=== PATIENT | female | born 1935 | race African-American/Black ===

== ENCOUNTER 2017-03-28 15:05 | Inpatient (IN) | payer MEDICARE, BC ==
[~2017-03-28] VITALS: Ht 162.6 cm; Wt 65.3 kg
[~2017-03-28 15:05] MED LIST: AMLO10TA80; ATOR20TA65 PO; FURO20TA4; METO-396; PANT40TA4; PROC10TA PO; SODI650T PO; WARF4TAB39
[2017-03-28] MEDS ORDERED: KETOROLAC 30MG/ML VIAL IV STA (15:39)
[2017-03-28] MEDS ORDERED: ONDANSETRON HCL 4MG TABLET PO ONE (15:45)
[2017-03-28 15:56] LABS: BASOPHILS % 0.8 % (0.0-2.0); EOSINOPHILS % 0.1 % (0.0-5.0); HEMATOCRIT. 33.2 % (36.0-48.0); LYMPHOCYTES % 24.8 % (20.0-50.0); MEAN CORPUSCULAR HEMOGLOBIN 31.2 pg (28.0-32.0); MEAN CORPUSCULAR VOLUME 94.5 fL (81.0-99.0); MONOCYTES % 7.1 % (2.0-8.0); NEUTROPHILS % 67.2 % (40.0-76.0); PLATELET 358 x1000/uL (130-400); RED BLOOD CELL COUNT 3.52 mill/uL (4.2-5.4); RED CELL DISTRIBUTION WIDTH 18.5 % (11.6-14.6)
[2017-03-28] MEDS ORDERED: ONDANSETRON HCL 4MG/2ML VIAL ONE (16:05)
[2017-03-28 16:07] LABS: INR 3.2; PROTHROMBIN TIME 33.3 sec (9.4-11.6)
[2017-03-28 16:10] LABS: CARBON DIOXIDE 21 mEq/L (21-32); CHLORIDE 105 mEq/L (98-107)
[2017-03-28] MEDS ORDERED: ONDANSETRON HCL 4MG/2ML VIAL IV ONE (16:15)
[2017-03-28] MEDS ORDERED: MORPHINE SULFATE 4 MG/ML CPJ (NOT FOR IM USE) IV ONE (17:00)
[2017-03-28] MEDS ORDERED: MAGNESIUM CITRATE 300ML SOLUTION PO ONE (17:00)
[2017-03-28] MEDS ORDERED: MORPHINE SULFATE 2 MG/ML CPJ (NOT FOR IM USE) IV ONE (17:35)
[2017-03-28 18:34] LABS: CLARITY URINE TURBID (CLEAR); COLOR URINE DARK YELLOW (YELLOW); GLUCOSE URINE NEGATIVE (NEGATIVE); KETONES URINE TRACE (NEGATIVE); LEUKOCYTE ESTERASE URINE 3+ (NEGATIVE); NITRITE URINE NEGATIVE (NEGATIVE); OCCULT BLOOD URINE 2+ (NEGATIVE); PH URINE 5.5 (4.5-8.0); PROTEIN URINE 3+ (NEGATIVE); SPECIFIC GRAVITY URINE 1.021 (1.005-1.030); UROBILINOGEN URINE 0.2 E.U./dL (0.2-1.0)
[2017-03-28] MEDS ORDERED: CEFTRIAXONE 1 G PREMIX 50 ML IV ONE (18:45)
[2017-03-28] MEDS ORDERED: CLONIDINE 0.1MG TABLET PO PRN (22:15)
[2017-03-28] MEDS ORDERED: MAGNESIUM/ALUMINUM HYDROXIDE/SIMETHICONE 30ML UDC PO PRN (22:15)
[2017-03-28] MEDS ORDERED: NA PHOS,M-B/NA PHOS,DI-BA ENEMA 118ML PR PRN (22:15)
[2017-03-28] MEDS ORDERED: DOCUSATE SODIUM 100MG CAPSULE PO PRN (22:15)
[2017-03-28] MEDS ORDERED: IPRATROPIUM/ALBUTEROL 0.5-3(2.5)MG/3ML NEB INH PRN (22:15)
[2017-03-28 23:00] VITALS: BP 133/78
[2017-03-28] MEDS: ONDANSETRON HCL 4MG/2ML VIAL IV PRN (23:30)
[2017-03-28] MEDS ORDERED: LEVOFLOXACIN 500MG PREMIX 100 ML IV NR (23:30)
[2017-03-28] MEDS: ACETAMINOPHEN 325MG TABLET PO PRN (23:30)
[2017-03-28] MEDS: SODIUM CHLORIDE 0.45% 1,000 ML IV SCH (23:30)
[2017-03-29] VITALS: BP_SYST 57
[2017-03-29 04:00] VITALS: BP 129/70
[2017-03-29] MEDS: ACETAMINOPHEN 325MG TABLET PO PRN (06:49)
[2017-03-29 07:08] LABS: EOSINOPHILS % 0.1 % (0.0-5.0); HEMATOCRIT. 30.7 % (36.0-48.0); HEMOGLOBIN. 10.2 g/dL (12.0-16.0); LYMPHOCYTES % 16.5 % (20.0-50.0); MEAN CORPUSCULAR HEMOGLOBIN 31.7 pg (28.0-32.0); MEAN CORPUSCULAR VOLUME 95.1 fL (81.0-99.0); MEAN PLATELET VOLUME 9.2 fl (7.4-10.4); MONOCYTES % 7.6 % (2.0-8.0); NEUTROPHILS % 75.8 % (40.0-76.0); PLATELET 305 x1000/uL (130-400); RED BLOOD CELL COUNT 3.22 mill/uL (4.2-5.4); RED CELL DISTRIBUTION WIDTH 18.5 % (11.6-14.6)
[2017-03-29 08:04] LABS: CARBON DIOXIDE 20 mEq/L (21-32); CHLORIDE 106 mEq/L (98-107)
[2017-03-29] MEDS: ASPIRIN 81MG EC TABLET PO SCH (08:31)
[2017-03-29] MEDS: ONDANSETRON HCL 4MG/2ML VIAL IV PRN (09:14)
[2017-03-29 09:16] VITALS: BP 128/76
[2017-03-29] MEDS ORDERED: HYDROCODONE/ACETAMINOPHEN 5/325MG TABLET PO PRN (09:30)
[2017-03-29] MEDS: MORPHINE SULFATE 2 MG/ML CPJ (NOT FOR IM USE) IV PRN ×2 (10:14→17:17)
[2017-03-29] MEDS ORDERED: LACTULOSE 20G/30ML UDC PO NR (12:30)
[2017-03-29 12:58] VITALS: BP 121/65
[2017-03-29] MEDS: SODIUM CHLORIDE 0.45% 1,000 ML IV SCH (14:27)
[2017-03-29 17:17] VITALS: BP 129/79
[2017-03-29 20:00] VITALS: BP 140/66
[2017-03-29] MEDS ORDERED: LEVOFLOXACIN 250MG PREMIX 50 ML IV SCH (20:00)
[2017-03-30] VITALS (7 sets, daily range): BP systolic 119–140; BP diastolic 61–70
[2017-03-30] MEDS: MORPHINE SULFATE 2 MG/ML CPJ (NOT FOR IM USE) IV PRN ×2 (02:35→09:48)
[2017-03-30 06:41] LABS: BASOPHILS % 0.4 % (0.0-2.0); EOSINOPHILS % 0.2 % (0.0-5.0); HEMOGLOBIN. 9.2 g/dL (12.0-16.0); LYMPHOCYTES % 25.5 % (20.0-50.0); MEAN CORPUSCULAR HEMOGLOBIN 31.2 pg (28.0-32.0); MEAN CORPUSCULAR VOLUME 94.9 fL (81.0-99.0); MONOCYTES % 8.8 % (2.0-8.0); NEUTROPHILS % 65.1 % (40.0-76.0); PLATELET 294 x1000/uL (130-400); RED BLOOD CELL COUNT 2.95 mill/uL (4.2-5.4); RED CELL DISTRIBUTION WIDTH 17.9 % (11.6-14.6)
[2017-03-30 06:42] LABS: INR 2.4; PROTHROMBIN TIME 25.4 sec (9.4-11.6)
[2017-03-30 07:03] LABS: CARBON DIOXIDE 20 mEq/L (21-32); CHLORIDE 108 mEq/L (98-107)
[2017-03-30] MEDS: ASPIRIN 81MG EC TABLET PO SCH (08:08)
[2017-03-30] MEDS: ACETAMINOPHEN 325MG TABLET PO PRN (08:08)
[2017-03-30] MEDS: SODIUM CHLORIDE 0.45% 1,000 ML IV SCH (08:09)
[2017-03-30] MEDS: ONDANSETRON HCL 4MG/2ML VIAL IV PRN (15:19)
== END 2017-03-30 21:20 | DRG 391 ==
LOC: ER 15:21 → 6EST 18:54 → ENRESERV 19:31 → 6EST 03-30 03:28
PROVIDERS: ADMIT Hospitalist; ATTEND Hospitalist
DX: K59.00 Constipation, unspecified (principal); E43 Unspecified severe protein-calorie malnutrition; N17.9 Acute kidney failure, unspecified; D68.59 Other primary thrombophilia; R65.10 Systemic inflammatory response syndrome (SIRS) of non-infectious origin without acute organ dysfunction; N39.0 Urinary tract infection, site not specified; M19.90 Unspecified osteoarthritis, unspecified site; I10 Essential (primary) hypertension; Z86.718 Personal history of other venous thrombosis and embolism; Z90.710 Acquired absence of both cervix and uterus; Z87.81 Personal history of (healed) traumatic fracture; Z68.24 Body mass index [BMI] 24.0-24.9, adult; Z79.01 Long term (current) use of anticoagulants; Z79.899 Other long term (current) drug therapy
CPT/HCPCS: 36415; 74176; 80053; 81001; 83605; 83690; 85025; 85610; 87077; 87086; 87186; 93005; 93970; 96365; 96375; 97163; 99285; J0696; J1885; J1956; J2270; J2405; Q0162

== ENCOUNTER 2018-10-07 13:03 | Inpatient (IN) | payer MEDICARE, BC ==
[~2018-10-07] VITALS: Ht 157.5 cm; Wt 56.3 kg
[~2018-10-07 13:03] MED LIST changes: -PROC10TA PO; +PROC10TA13 PO; -WARF4TAB39; +WARF4TAB71
[2018-10-07] MEDS ORDERED: NA PHOS,M-B/NA PHOS,DI-BA ENEMA 118ML PR ONE (14:15)
[2018-10-07 14:52] LABS: BASOPHILS % 0.1 % (0.0-2.0); HEMATOCRIT. 27.5 % (36.0-48.0); HEMOGLOBIN. 9.3 g/dL (12.0-16.0); LYMPHOCYTES % 11.2 % (20.0-50.0); MEAN CORPUSCULAR HEMOGLOBIN 31.6 pg (28.0-32.0); MEAN PLATELET VOLUME 8.3 fl (7.4-10.4); MONOCYTES % 5.7 % (2.0-8.0); PLATELET 332 x1000/uL (130-400); RED BLOOD CELL COUNT 2.95 mill/uL (4.2-5.4); RED CELL DISTRIBUTION WIDTH 14.8 % (11.6-14.6)
[2018-10-07 15:00] LABS: CHLORIDE 118 mEq/L (98-107)
[2018-10-07] MEDS ORDERED: POLYETHYLENE GLYCOL 3350 (17GM) 1 DOSE PACK PO ONE (15:00)
[2018-10-07 15:03] LABS: INR 1.1; PROTHROMBIN TIME 10.8 sec (9.1-11.1)
[2018-10-07] MEDS ORDERED: SODIUM CHLORIDE 0.9% 1,000 ML IV ONE (15:15)
[2018-10-07] MEDS ORDERED: MORPHINE SULFATE 4 MG/ML CPJ (NOT FOR IM USE) IV ONE (15:15)
[2018-10-07] MEDS ORDERED: ONDANSETRON HCL 4MG/2ML INJ IV ONE (15:15)
[2018-10-07] MEDS ORDERED: DEXTROSE 50% WATER 50ML SYRINGE IV ONE (15:30)
[2018-10-07] MEDS ORDERED: CALCIUM GLUCONATE 100MG/ML 10ML VIAL IV ONE (15:30)
[2018-10-07] MEDS ORDERED: INSULIN REGULAR (HUMULIN R) UD 100 UNITS/ML SYR IV ONE (15:30)
[2018-10-07] MEDS ORDERED: LACTULOSE 20G/30ML UDC PO ONE (15:30)
[2018-10-07 15:51] LABS: BG BASE EXCESS -14.7 mmol/L (-2.0-2.0); BG CARBOXYHEMOGLOBIN 0.3 % (0.5-1.5); BG DEOXYHEMOGLOBIN 2.5 % (0.0-5.0); BG FRACTION INSPIRED OXYGEN 21; BG HCO3 ACT 9.6 mmol/L (22.0-26.0); BG METHEMOGLOBIN 0.2 % (0.0-1.5); BG OXYGEN SATURATION 97.5 % (92.0-98.5); BG PCO2 19.4 mmHg (35.0-45.0); BG PH 7.311 (7.350-7.450); BG PO2 111.3 mmHg (75.0-100.0); BG SAMPLE SITE RIGHT BRACHIAL; BG TOTAL HEMOGLOBIN 10.4 g/dL (12.0-18.0); BG VENT MODE ROOM AIR
[2018-10-07] MEDS ORDERED: ONDANSETRON HCL 4MG/2ML INJ IV NR (16:30)
[2018-10-07] MEDS ORDERED: MORPHINE SULFATE 4 MG/ML CPJ (NOT FOR IM USE) IV NR (16:30)
[2018-10-07] MEDS ORDERED: GUAIFENESIN 200MG/10ML SUGAR FREE UDC PO PRN (18:15)
[2018-10-07] MEDS ORDERED: ONDANSETRON HCL 4MG/2ML INJ IV PRN (18:15)
[2018-10-07] MEDS ORDERED: IPRATROPIUM/ALBUTEROL 0.5-3(2.5)MG/3ML NEB INH PRN (18:15)
[2018-10-07] MEDS ORDERED: DIPHENHYDRAMINE 50MG/ML VIAL IV PRN (18:15)
[2018-10-07 22:10] VITALS: BP 174/65
[2018-10-07 23:41] LABS: CREATINE KINASE MB FRACTION 1.1 ng/mL (0.5-3.6)
[2018-10-08 04:00] VITALS: BP 152/77
[2018-10-08 05:57] LABS: BASOPHILS % 0.1 % (0.0-2.0); HEMATOCRIT. 23.3 % (36.0-48.0); HEMOGLOBIN. 7.6 g/dL (12.0-16.0); LYMPHOCYTES % 9.8 % (20.0-50.0); MEAN CORPUSCULAR HEMOGLOBIN 31.1 pg (28.0-32.0); MEAN CORPUSCULAR VOLUME 95.3 fL (81.0-99.0); MEAN PLATELET VOLUME 8.4 fl (7.4-10.4); MONOCYTES % 8.7 % (2.0-8.0); NEUTROPHILS % 81.4 % (40.0-76.0); PLATELET 283 x1000/uL (130-400); RED BLOOD CELL COUNT 2.45 mill/uL (4.2-5.4)
[2018-10-08 06:26] LABS: CHLORIDE 123 mEq/L (98-107)
[2018-10-08 06:42] LABS: LDL CHOLESTEROL 46 mg/dL (5-100)
[2018-10-08 06:44] LABS: CREATINE KINASE 48 IU/L (26-192)
[2018-10-08 06:45] LABS: HDL CHOLESTEROL 32 mg/dL (40-59)
[2018-10-08 08:00] VITALS: BP 132/68
[2018-10-08] MEDS: DOCUSATE SODIUM 100MG CAPSULE PO PRN (09:59)
[2018-10-08] MEDS ORDERED: SODIUM BICARBONATE 8.4% 1 MEQ/ML 50ML SYR IV NR (10:30)
[2018-10-08] MEDS ORDERED: INSULIN REGULAR (HUMULIN R) UD 100 UNITS/ML SYR IV NR (11:30)
[2018-10-08] MEDS ORDERED: SODIUM BICARBONATE 150 MEQ in DEXTROSE 5% WATER 950 ML IV SCH (11:30)
[2018-10-08] MEDS ORDERED: SODIUM POLYSTYRENE SULFONATE 15 G/60 ML BOT PO NR (11:30)
[2018-10-08] MEDS ORDERED: DEXTROSE 50% WATER 50ML SYRINGE IV NR ×2 (11:30→13:30)
[2018-10-08] MEDS: CITRIC ACID/SODIUM CITRATE SOLN 30ML UDC PO SCH ×4 (11:42→22:40)
[2018-10-08 12:00] VITALS: BP 132/62
[2018-10-08] MEDS ORDERED: LACTULOSE 20G/30ML UDC PO PRN (12:15)
[2018-10-08 16:00] VITALS: BP 156/66
[2018-10-08 16:45] LABS: TOTAL IRON BINDING CAPACITY 218 ug/dL (250-450)
[2018-10-08] MEDS: DOCUSATE SODIUM 100MG CAPSULE PO SCH (18:20)
[2018-10-08 20:00] VITALS: BP 125/67
[2018-10-08] MEDS: ATORVASTATIN CALCIUM 20MG TABLET PO SCH (22:40)
[2018-10-08] MEDS: AMLODIPINE 5MG TABLET PO SCH (22:42)
[2018-10-08] MEDS: METOPROLOL TARTRATE 25MG TABLET PO SCH (22:43)
[2018-10-09] VITALS: BP 123/62
[2018-10-09 04:00] VITALS: BP 141/68
[2018-10-09 04:58] LABS: CLARITY URINE CLEAR (CLEAR); COLOR URINE YELLOW (YELLOW); KETONES URINE NEGATIVE (NEGATIVE); LEUKOCYTE ESTERASE URINE NEGATIVE (NEGATIVE); NITRITE URINE NEGATIVE (NEGATIVE); OCCULT BLOOD URINE NEGATIVE (NEGATIVE); PROTEIN URINE 3+ (NEGATIVE); SPECIFIC GRAVITY URINE 1.015 (1.005-1.030)
[2018-10-09 07:07] LABS: BASOPHILS % 0.2 % (0.0-2.0); HEMATOCRIT. 21.5 % (36.0-48.0); HEMOGLOBIN. 7.4 g/dL (12.0-16.0); LYMPHOCYTES % 27.3 % (20.0-50.0); MEAN CORPUSCULAR HEMOGLOBIN 31.6 pg (28.0-32.0); MEAN CORPUSCULAR VOLUME 92.4 fL (81.0-99.0); MEAN PLATELET VOLUME 8.6 fl (7.4-10.4); MONOCYTES % 9.2 % (2.0-8.0); NEUTROPHILS % 63.3 % (40.0-76.0); PLATELET 255 x1000/uL (130-400); RED BLOOD CELL COUNT 2.33 mill/uL (4.2-5.4); RED CELL DISTRIBUTION WIDTH 14.8 % (11.6-14.6)
[2018-10-09 08:00] VITALS: BP 128/60
[2018-10-09 08:09] LABS: PHOSPHORUS 3.6 mg/dL (2.5-4.9)
[2018-10-09] MEDS: CITRIC ACID/SODIUM CITRATE SOLN 30ML UDC PO SCH (09:10)
[2018-10-09] MEDS: METOPROLOL TARTRATE 25MG TABLET PO SCH ×2 (09:10→20:56)
[2018-10-09] MEDS: AMLODIPINE 5MG TABLET PO SCH ×2 (09:11→20:55)
[2018-10-09] MEDS: DOCUSATE SODIUM 100MG CAPSULE PO SCH ×2 (09:11→18:02)
[2018-10-09] MEDS: SODIUM CHLORIDE 0.45% 1,000 ML IV SCH ×2 (09:40→21:50)
[2018-10-09 09:53] LABS: BG BASE EXCESS 3.2 mmol/L (-2.0-2.0); BG DEOXYHEMOGLOBIN 3.4 % (0.0-5.0); BG FRACTION INSPIRED OXYGEN 21; BG HCO3 ACT 25.8 mmol/L (22.0-26.0); BG METHEMOGLOBIN 0.2 % (0.0-1.5); BG OXYGEN SATURATION 96.6 % (92.0-98.5); BG OXYHEMOGLOBIN 96.4 % (94.0-97.0); BG PCO2 31.4 mmHg (35.0-45.0); BG PH 7.533 (7.350-7.450); BG PO2 92.6 mmHg (75.0-100.0); BG SAMPLE SITE LEFT BRACHIAL; BG TOTAL HEMOGLOBIN 7.9 g/dL (12.0-18.0); BG VENT MODE ROOM AIR
[2018-10-09 12:00] VITALS: BP 121/70
[2018-10-09 16:00] VITALS: BP 145/70
[2018-10-09 20:00] VITALS: BP 133/53
[2018-10-09] MEDS: ATORVASTATIN CALCIUM 20MG TABLET PO SCH (20:55)
[2018-10-10] VITALS (10 sets, daily range): BP systolic 122–150; BP diastolic 61–91
[2018-10-10 07:47] LABS: MEAN CORPUSCULAR HEMOGLOBIN 31.7 pg (28.0-32.0); MEAN PLATELET VOLUME 8.3 fl (7.4-10.4); PLATELET 255 x1000/uL (130-400); RED BLOOD CELL COUNT 2.16 mill/uL (4.2-5.4)
[2018-10-10 07:52] LABS: HEMOGLOBIN. 6.9 g/dL (12.0-16.0)
[2018-10-10 07:53] LABS: HEMATOCRIT. 19.9 % (36.0-48.0)
[2018-10-10] MEDS: AMLODIPINE 5MG TABLET PO SCH ×2 (09:41→23:02)
[2018-10-10] MEDS: DOCUSATE SODIUM 100MG CAPSULE PO SCH (09:42)
[2018-10-10] MEDS: METOPROLOL TARTRATE 25MG TABLET PO SCH ×2 (09:42→23:13)
[2018-10-10 10:18] LABS: PHOSPHORUS 3.4 mg/dL (2.5-4.9)
[2018-10-10] MEDS: SODIUM CHLORIDE 0.45% 1,000 ML IV SCH (12:29)
[2018-10-10] MEDS ORDERED: BISACODYL 5MG TABLET PO PRN (16:00)
[2018-10-10] MEDS ORDERED: MINERAL OIL ENEMA 133ML PR ONE (16:00)
[2018-10-10] MEDS ORDERED: IRON SUCROSE COMPLEX 100 MG/5 ML ML IV SCH (16:45)
[2018-10-10 18:10] LABS: PLATELET ESTIMATE NORMAL
[2018-10-10] MEDS: PANTOPRAZOLE SODIUM 40 MG/VIAL IV SCH (18:59)
[2018-10-10] MEDS: DOCUSATE SODIUM 250MG CAPSULE PO SCH (18:59)
[2018-10-10] MEDS ORDERED: MAGNESIUM 2 G PREMIX 50 ML IV NR (19:00)
[2018-10-10] MEDS ORDERED: EPOETIN ALFA 10000UNITS/ML VIAL SUBCUT ONE (21:00)
[2018-10-10 21:06] LABS: HEMATOCRIT 26.9 % (36.0-48.0); HEMOGLOBIN 8.8 g/dL (12.0-16.0)
[2018-10-10] MEDS: ATORVASTATIN CALCIUM 20MG TABLET PO SCH (23:00)
[2018-10-11] VITALS: BP 158/91
[2018-10-11 01:26] LABS: HEMATOCRIT 28.4 % (36.0-48.0); HEMOGLOBIN 9.6 g/dL (12.0-16.0)
[2018-10-11] MEDS: SODIUM CHLORIDE 0.45% 1,000 ML IV SCH ×2 (01:30→11:29)
[2018-10-11 04:00] VITALS: BP 142/70
[2018-10-11 06:52] LABS: HEMATOCRIT. 28.4 % (36.0-48.0); HEMOGLOBIN. 9.5 g/dL (12.0-16.0); MEAN CORPUSCULAR HEMOGLOBIN 30.3 pg (28.0-32.0); MEAN CORPUSCULAR VOLUME 90.9 fL (81.0-99.0); MEAN PLATELET VOLUME 8.4 fl (7.4-10.4); PLATELET 269 x1000/uL (130-400); RED BLOOD CELL COUNT 3.12 mill/uL (4.2-5.4); RED CELL DISTRIBUTION WIDTH 16.2 % (11.6-14.6)
[2018-10-11 08:00] VITALS: BP 152/72
[2018-10-11 08:58] LABS: PHOSPHORUS 4.5 mg/dL (2.5-4.9)
[2018-10-11] MEDS: DOCUSATE SODIUM 250MG CAPSULE PO SCH (09:00)
[2018-10-11] MEDS: METOPROLOL TARTRATE 25MG TABLET PO SCH ×2 (09:00→20:50)
[2018-10-11] MEDS: AMLODIPINE 5MG TABLET PO SCH ×2 (09:00→20:50)
[2018-10-11] MEDS: PANTOPRAZOLE SODIUM 40 MG/VIAL IV SCH (09:36)
[2018-10-11 12:00] VITALS: BP 152/74
[2018-10-11 12:31] LABS: HEMATOCRIT 25.7 % (36.0-48.0); HEMOGLOBIN 8.8 g/dL (12.0-16.0)
[2018-10-11 12:49] LABS: PLATELET ESTIMATE NORMAL
[2018-10-11] MEDS ORDERED: FENTANYL CITRATE/PF 50MCG/ML 2ML VIAL IV PRN (14:50)
[2018-10-11] MEDS ORDERED: MIDAZOLAM HCL 5 MG/5 ML VIAL IV PRN (14:51)
[2018-10-11] MEDS ORDERED: MIDAZOLAM HCL 5 MG/5 ML VIAL ONE (14:55)
[2018-10-11] MEDS ORDERED: FENTANYL CITRATE/PF 50MCG/ML 2ML VIAL ONE (14:55)
[2018-10-11] MEDS ORDERED: SODIUM CHLORIDE 0.9% 10ML VIAL ONE (15:43)
[2018-10-11] MEDS ORDERED: SIMETHICONE 40 MG/0.6 ML 30ML ONE (15:44)
[2018-10-11 16:00] VITALS: BP 148/52
[2018-10-11 18:02] LABS: HEMATOCRIT 32.3 % (36.0-48.0); HEMOGLOBIN 10.6 g/dL (12.0-16.0)
[2018-10-11] MEDS: SUCRALFATE 1G TABLET PO SCH ×2 (18:50→20:50)
[2018-10-11] MEDS: IRON SUCROSE COMPLEX 100 MG/5 ML ML IV SCH (18:50)
[2018-10-11 20:00] VITALS: BP 147/70
[2018-10-11] MEDS: ATORVASTATIN CALCIUM 20MG TABLET PO SCH (20:50)
[2018-10-12] VITALS: BP 158/71
[2018-10-12] MEDS: ACETAMINOPHEN 325MG TABLET PO PRN ×2 (00:54→15:17)
[2018-10-12] MEDS: SODIUM CHLORIDE 0.45% 1,000 ML IV SCH (03:31)
[2018-10-12 04:00] VITALS: BP 151/83
[2018-10-12] MEDS: SUCRALFATE 1G TABLET PO SCH ×2 (06:27→13:24)
[2018-10-12 07:38] LABS: HEMATOCRIT. 25.8 % (36.0-48.0); HEMOGLOBIN. 8.7 g/dL (12.0-16.0); MEAN CORPUSCULAR HEMOGLOBIN 30.5 pg (28.0-32.0); MEAN CORPUSCULAR VOLUME 90.1 fL (81.0-99.0); MEAN PLATELET VOLUME 8.3 fl (7.4-10.4); PLATELET 245 x1000/uL (130-400); RED BLOOD CELL COUNT 2.86 mill/uL (4.2-5.4); RED CELL DISTRIBUTION WIDTH 15.3 % (11.6-14.6)
[2018-10-12 07:40] LABS: PHOSPHORUS 4.3 mg/dL (2.5-4.9)
[2018-10-12 08:00] VITALS: BP 154/70
[2018-10-12] MEDS: PANTOPRAZOLE SODIUM 40 MG/VIAL IV SCH (10:12)
[2018-10-12] MEDS: METOPROLOL TARTRATE 25MG TABLET PO SCH (10:13)
[2018-10-12] MEDS: DOCUSATE SODIUM 100MG CAPSULE PO PRN (10:13)
[2018-10-12] MEDS: AMLODIPINE 5MG TABLET PO SCH (10:13)
[2018-10-12] MEDS: IRON SUCROSE COMPLEX 100 MG/5 ML ML IV SCH (10:13)
[2018-10-12] MEDS: DOCUSATE SODIUM 250MG CAPSULE PO SCH (10:17)
[2018-10-12 11:32] VITALS: BP 153/65
[2018-10-12] MEDS ORDERED: DEXT 5%/0.45% NACL 1000ML 1,000 ML IV SCH (13:00)
[2018-10-12 16:00] VITALS: BP 144/64
[2018-10-12 16:49] VITALS: BP 144/64
[2018-10-12] MEDS ORDERED: SUCRALFATE 1 G/10 ML UDC PO SCH (17:20)
[2018-10-13 14:40] LABS: PLATELET ESTIMATE NORMAL
== END 2018-10-12 18:04 | disposition home or self-care (01) | DRG 682 ==
LOC: ER 13:03 → EDBEDREQ 15:26 → 6WST 17:27 → EDBEDREQ 17:28 → ENRESERV 20:52
PROVIDERS: ADMIT Internal Medicine; ATTEND Internal Medicine
PROC: 30233N1 Transfusion of Nonautologous Red Blood Cells into Peripheral Vein, Percutaneous Approach (ICD-10-PCS; 2018-10-10)
PROC: 0DB58ZX Excision of Esophagus, Via Natural or Artificial Opening Endoscopic, Diagnostic (ICD-10-PCS; principal; 2018-10-11)
PROC: 0DB68ZX Excision of Stomach, Via Natural or Artificial Opening Endoscopic, Diagnostic (ICD-10-PCS; 2018-10-11)
DX: N17.9 Acute kidney failure, unspecified (principal); E43 Unspecified severe protein-calorie malnutrition; E87.2 Acidosis; I31.3 Pericardial effusion (noninflammatory); J84.9 Interstitial pulmonary disease, unspecified; I50.40 Unspecified combined systolic (congestive) and diastolic (congestive) heart failure; I13.0 Hypertensive heart and chronic kidney disease with heart failure and stage 1 through stage 4 chronic kidney disease, or unspecified chronic kidney disease; K22.10 Ulcer of esophagus without bleeding; K56.41 Fecal impaction; K80.20 Calculus of gallbladder without cholecystitis without obstruction; E83.52 Hypercalcemia; E87.5 Hyperkalemia; N18.3 Chronic kidney disease, stage 3 (moderate); D64.9 Anemia, unspecified; K44.9 Diaphragmatic hernia without obstruction or gangrene; E83.51 Hypocalcemia; E27.8 Other specified disorders of adrenal gland; E86.0 Dehydration; D72.829 Elevated white blood cell count, unspecified; E78.5 Hyperlipidemia, unspecified; K29.70 Gastritis, unspecified, without bleeding; K21.0 Gastro-esophageal reflux disease with esophagitis; K82.8 Other specified diseases of gallbladder; I27.21 Secondary pulmonary arterial hypertension; M19.90 Unspecified osteoarthritis, unspecified site; N32.89 Other specified disorders of bladder; Z96.659 Presence of unspecified artificial knee joint; Z82.49 Family history of ischemic heart disease and other diseases of the circulatory system; Z86.718 Personal history of other venous thrombosis and embolism; Z79.01 Long term (current) use of anticoagulants; Z79.899 Other long term (current) drug therapy; Z68.22 Body mass index [BMI] 22.0-22.9, adult
CPT/HCPCS: 36415; 36430; 36600; 71045; 74176; 80048; 80061; 82375; 82550; 82553; 82728; 82805; 82962; 83036; 83540; 83550; 83605; 83735; 83880; 84100; 84145; 84443; 85014; 85018; 86850; 86900; 86920; 88305; 88312; 88313; 93005; 93306; 93970; 97162; 97166; 99285; C9113; J0610; J0885; J1200; J1815; J2250; J2270; J2405; J3010; J3475; J3490; J7030; J7050; J7070; P9016; A4315